=== PATIENT | female | born 1975 | race Two or more races ===

== ENCOUNTER 2018-05-30 14:13 | Observation (INO) | payer BC, OTHER ==
--- NOTE | 2018-05-30 15:32 | ER Document Report ---
ED Medical Screen (RME) - General Chief Complaint: Passed Out Prior to Arrival Stated Complaint: SYNCOPE Time Seen by Provider: 05/30/18 15:22 Notes: The patient is a 43-year-old female, past medical history "tachycardia", presents after multiple episodes of syncope. She was in the bathroom when she began to feel lightheaded, nauseous and then found herself on the ground. She thinks she hit her head because she is having a frontal headache. Patient then had 2 more brief episodes of syncope and EMS was called. She has followed with [place] cardiology and had negative MRIs, echos and blood work for her tachycardia. PE: RRR. NAD. Mild frontal hematoma and tenderness. I have greeted and performed a rapid initial assessment of this patient. A comprehensive ED assessment and evaluation of the patient, analysis of test results and completion of the medical decision making process will be conducted by additional ED providers. TRAVEL OUTSIDE OF THE [place] 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
[2018-05-30 15:48] LABS: ABSOLUTE EOSINOPHILS # (AUTO) 0.1 10^3/uL (0.0-0.6); ABSOLUTE LYMPHOCYTES (AUTO) 2.2 10^3/uL (0.5-4.7); ABSOLUTE MONOCYTES (AUTO) 0.5 10^3/uL (0.1-1.4); ABSOLUTE NEUT (AUTO) 3.2 10^3/uL (1.7-8.2); BASOPHILS % (AUTO) 0.7 % (0-2); EOSINOPHILS % (AUTO) 2.3 % (0-6); HEMATOCRIT 39.4 % (36.0-47.0); HEMOGLOBIN 12.8 g/dL (12.0-15.5); LYMPHOCYTES % (AUTO) 35.5 % (13-45); MEAN CORPUSCULAR HEMOGLOBIN 29.5 pg (27.0-33.4); MEAN CORPUSCULAR HGB CONC 32.5 g/dL (32.0-36.0); MEAN CORPUSCULAR VOLUME 91 fl (80-97); MONOCYTES % (AUTO) 8.1 % (3-13); PLATELET COUNT 245 10^3/uL (150-450); RED BLOOD COUNT 4.34 10^6/uL (3.72-5.28); SEGMENTED NEUTROPHILS % (AUTO) 53.4 % (42-78); TOTAL CELLS COUNTED % (AUTO) 100 %; WHITE BLOOD COUNT 6.1 10^3/uL (4.0-10.5)
[2018-05-30 15:57] LABS: ALANINE AMINOTRANSFERASE 21 U/L (9-52); ALBUMIN 4.2 g/dL (3.5-5.0); ALKALINE PHOSPHATASE 46 U/L (38-126); ANION GAP 11 (5-19); ASPARTATE AMINO TRANSFERASE 21 U/L (14-36); BILIRUBIN,DIRECT 0.2 mg/dL (0.0-0.4); BILIRUBIN,TOTAL 0.4 mg/dL (0.2-1.3); BLOOD UREA NITROGEN 9 mg/dL (7-20); CALCIUM 9.5 mg/dL (8.4-10.2); CARBON DIOXIDE 26 mmol/L (22-30); CHLORIDE 107 mmol/L (98-107); CREATINE KINASE 43 U/L (30-135); GLUCOSE 116 mg/dL (75-110); POTASSIUM 4.6 mmol/L (3.6-5.0); SODIUM 143.5 mmol/L (137-145); TOTAL PROTEIN 6.6 g/dL (6.3-8.2)
--- NOTE | 2018-05-30 16:11 | RADIOLOGY REPORT (SQ) ---
EXAM DESCRIPTION: CT HEAD WITHOUT COMPLETED DATE/TIME: 05/30/2018 4:02 pm REASON FOR STUDY: +LOC, head injury COMPARISON: None. TECHNIQUE: Axial images acquired through the brain without intravenous contrast. Images reviewed wi th bone, brain and subdural windows. Additional sagittal and coronal reconstructions were generated. Images stored on PACS. All CT scanners at this facility use dose modulation, iterative reconstruction, and/or weight based d osing when appropriate to reduce radiation dose to as low as reasonably achievable (ALARA). [facility]: Dose Right [facility]: CareDose [facility]: Dose Right [facility]: Teradose 4D [facility]: Smart LabStyle Innovations RADIATION DOSE: CT Rad equipment meets quality standard of care and radiation dose reduction techniq ues were employed. CTDIvol: 53.2 mGy. DLP: 1044 mGy-cm. mGy. LIMITATIONS: None. FINDINGS: VENTRICLES: Normal size and contour. CEREBRUM: No masses. No hemorrhage. No midline shift. No evidence for acute infarction. Normal gra y/white matter differentiation. No areas of low density in the white matter. CEREBELLUM: No masses. No hemorrhage. No alteration of density. No evidence for acute infarction. EXTRAAXIAL SPACES: No fluid collections. No masses. ORBITS AND GLOBE: No intra- or extraconal masses. Normal contour of globe without masses. CALVARIUM: No fracture. PARANASAL SINUSES: No fluid or mucosal thickening. SOFT TISSUES: No mass or hematoma. OTHER: No other significant finding. IMPRESSION: NORMAL BRAIN CT WITHOUT CONTRAST. EVIDENCE OF ACUTE STROKE: NO. COMMENT: Quality ID # [id number]: Final reports with documentation of one or more dose reduction techniques (e.g., Automated exposure control, adjustment of the mA and/or kV according to patient size, use of iterative reconstruction technique) TECHNICAL DOCUMENTATION: JOB ID: [id number]- All Rights Reserved Reading location - IP/workstation name: [email or web address]--[email or web address]
--- NOTE | 2018-05-30 16:21 | ER Document Report ---
ED General - General Chief Complaint: Passed Out Prior to Arrival Stated Complaint: SYNCOPE Time Seen by Provider: 05/30/18 15:22 Mode of Arrival: Medic Information source: Patient, Parent TRAVEL OUTSIDE OF THE U.S. 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 She states she had some left-sided numbness and tingling on her left but also on her right in the last 3 hours, but states this has happened previously. She started to come to, tried to get up and her came in just another syncopal event that lasted about a minute or so. Vaccinations are up-to-date patient has a history tachycardia, migraine and she has been worked up for her tachycardia with having an echocardiogram and MRI approximately 6 months ago at [facility]. Denies any recent trauma, new medications, food or travel. Denies fevers, chills, hematuria,blurred vision, double vision, loss of vision, speech changes, headaches, wheezing, ST, URI, neck pain , weakness, bowel or bladder dysfunction, saddle anesthesia, muscle paralysis, weakness in bilateral upper or lower extremities equally or rash. Denies IV drug use. - Related Data Allergies/Adverse Reactions: No Known Allergies Allergy (Verified 05/30/18 14:15) Past Medical History - General Information source: Patient, Relative, Emergency Med Personnel - Social History Smoking Status: Never Smoker Chew tobacco use (# tins/day): No Frequency of alcohol use: None Drug Abuse: None Family History: Reviewed & Not Pertinent Patient has suicidal ideation: No Patient has homicidal ideation: No Renal/ Medical History: Denies: Hx Peritoneal Dialysis Past Surgical History: Reports: Hx Gynecologic Surgery - fibroids, ablation 04/21, Hx Neurologic Surgery - fatty tumor from neck, Hx Orthopedic Surgery - left knee Review of Systems - Review of Systems Constitutional: See HPI EENT: No symptoms reported Cardiovascular: See HPI Respiratory: No symptoms reported Gastrointestinal: See HPI Genitourinary: No symptoms reported Female Genitourinary: No symptoms reported Musculoskeletal: No symptoms reported Skin: No symptoms reported Hematologic/Lymphatic: No symptoms reported Neurological/Psychological: See HPI Physical Exam - Vital signs Vitals: Temp Pulse Resp BP Pulse Ox 97.8 F 94 16 143/81 H 100 05/30/18 14:19 05/30/18 14:19 05/30/18 14:19 05/30/18 14:19 05/30/18 14:19 - Notes Notes: PHYSICAL EXAMINATION: GENERAL: Well-appearing, well-nourished and in no acute distress. HEAD: Atraumatic, normocephalic. EYES: Pupils equal round and reactive to light, extraocular movements intact, conjunctiva are normal. ENT: Nares patent, oropharynx clear without exudates. Moist mucous membranes. NECK: Normal range of motion, supple without lymphadenopathy LUNGS: Breath sounds clear to auscultation bilaterally and equal. No wheezes rales or rhonchi. HEART: Tachycardia and rhythm without murmurs ABDOMEN: Soft, epigastric pain, nondistended abdomen. No guarding, no rebound. No masses appreciated. Female : deferred Musculoskeletal: Normal range of motion, no pitting or edema. No cyanosis. NEUROLOGICAL: Cranial nerves grossly intact. Normal speech, normal gait. Normal sensory, motor exams. PERRLA, EOMI. Full motor and sensory function throughout. Supervisor Liquid Yeast + 2 equal bilaterally in BUE. Tongue midline. No pronator drift. No ataxia. Neck with APROM. Raises eyebrows. Strength is 5 out of 5 in bilateral upper and lower extremities equally.Speaks in full sentences. No weakness on one side. Romberg gait steady able to walk straight line. Able to recall 5 objects. PSYCH: Normal mood, normal affect. SKIN: Warm, Dry, normal turgor, no rashes or lesions noted. Course - Re-evaluation Re-evalutation: 05/30/18 18:18 83-year-old female who is afebrile, tachycardic but otherwise vitals stable in no distress presents for evaluation of syncopal event. CMP negative for leukocytosis or anemia, CMP negative for renal or hepatic dysfunction, no electrolyte disturbances. Urinalysis negative. CT head unremarkable. Patient has had workups with [facility] for her tachycardia which she states is not in the last 6 months which she reports was normal but does not have any documentation with her. Patient states her last MRI of her brain was when she was in [place] which was "several years ago" for her migraines. Reevaluation patient states she is becoming nauseous, is having some epigastric pain. Discussed case with Dr. Lyndon Thomas, ER attending, who feels that admission would be reasonable considering her 2 syncopal events which is become worse. Discussed case with Dr. Heraclio Denny, at 1745, hospitalist for admission for syncopal event with tachycardia to rule out PE and questionable patient if she had a TIA due to left -sided, consultation he felt that an MRI of the brain, as well as obtaining CTA of the chest and abdomen due to ruling out PE/epigastric with nausea and vomiting for mesenteric ischemia. Patient has been examined multiple times and consistently does not show any focal neurological deficits, however patient may have experienced a TIA. We will admit to IMICU on medical service for further evaluation of syncopal symptoms, tachycardia, epigastric pain with left-sided numbness - Vital Signs Vital signs: Temp Pulse Resp BP Pulse Ox 97.8 F 94 20 128/87 H 100 05/30/18 14:19 05/30/18 14:19 05/30/18 17:01 05/30/18 17:01 05/30/18 17:01 - Laboratory Result Diagrams: 05/30/18 13:45 05/30/18 13:45 Laboratory results interpreted by me: 05/30/18 13:45 Glucose 116 H Discharge - Discharge Clinical Impression: Syncopal episodes, Tachycardia, Nausea & vomiting, History of left-sided weakness Condition: Stable Disposition: ADMITTED INPATIENT Admitting Provider: Hospitalist - Unit Admitted: IMCU - Dr. Heraclio Denny Referrals: ELLIS HAWTHORNE MD [ASSOCIATE] - Follow up as needed
[2018-05-30] MEDS ORDERED: NORMAL SALINE 1000 ML 1,000 ML IV PRN (16:58)
[2018-05-30] MEDS ORDERED: PROCHLORPERAZINE EDISYLATE INJ 10 MG/2 ML VIAL IV ONE (16:58)
[2018-05-30 17:17] LABS: CREATINE KINASE 44 U/L (30-135)
[2018-05-30 17:18] LABS: PHOSPHORUS 3.5 mg/dL (2.5-4.5)
[2018-05-30 17:31] LABS: CREATINE KINASE MB < 0.22 ng/mL (<4.55); TROPONIN I < 0.012 ng/mL
--- NOTE | 2018-05-30 17:50 | RADIOLOGY REPORT (SQ) ---
EXAM DESCRIPTION: CHEST SINGLE VIEW COMPLETED DATE/TIME: 05/30/2018 5:39 pm REASON FOR STUDY: syncopal event COMPARISON: None. EXAM PARAMETERS: NUMBER OF VIEWS: One view. TECHNIQUE: Single frontal radiographic view of the chest acquired. RADIATION DOSE: NA LIMITATIONS: None. FINDINGS: LUNGS AND PLEURA: No opacities, masses or pneumothorax. No pleural effusion. MEDIASTINUM AND HILAR STRUCTURES: No masses. Contour normal. HEART AND VASCULAR STRUCTURES: Heart normal in size. Normal vasculature. BONES: No acute findings. HARDWARE: None in the chest. OTHER: No other significant finding. IMPRESSION: NO ACUTE RADIOGRAPHIC FINDING IN THE CHEST. TECHNICAL DOCUMENTATION: JOB ID: [id number] [place]-72 2010 [employer]- All Rights Reserved Reading location - IP/workstation name: [email or web address]
[2018-05-30] MEDS ORDERED: ASPIRIN 81 MG TABLET, CHEWABLE PO ONE (17:54)
[2018-05-30 17:58] LABS: APPEARANCE,URINE CLEAR; BILIRUBIN,URINE NEGATIVE (NEGATIVE); COLOR,URINE YELLOW; GLUCOSE, URINE NEGATIVE (NEGATIVE); KETONES,URINE NEGATIVE (NEGATIVE); LEUKOCYTE ESTERASE,URINE NEGATIVE (NEGATIVE); NITRITE,URINE NEGATIVE (NEGATIVE); PROTEIN,URINE NEGATIVE (NEGATIVE); URINE SPECIFIC GRAVITY 1.012; UROBILINOGEN,URINE NEGATIVE mg/dL (<2.0)
[2018-05-30 18:14] LABS: URINE AMPHETAMINES SCREEN NEGATIVE; URINE BARBITURATES SCREEN NEGATIVE; URINE BENZODIAZEPINES SCREEN NEGATIVE; URINE COCAINE SCREEN NEGATIVE; URINE MARIJUANA (THC) SCREEN NEGATIVE; URINE METHADONE SCREEN NEGATIVE; URINE PHENCYCLIDINE SCREEN NEGATIVE
[2018-05-30] MEDS ORDERED: ACETAMINOPHEN 325 MG TABLET PO PRN (18:20)
[2018-05-30] MEDS ORDERED: DIPHENHYDRAMINE HCL 50 MG/ML VIAL IV ONE (18:23)
--- NOTE | 2018-05-30 18:45 | PDOC H&P ---
History of Present Illness Admission Date/PCP: 05/30/2018 ROSALINA PIERRE MD Patient complains of: Syncope History of Present Illness: SEBAS AMARAL is a 43 year old female, with a past medical history of anemia , migraines, vitamin D deficiency, tachycardia and uterine fibroids, who presented to the ED via EMS with her complaining of syncope x2 and the house today. Patients is the main historian. Patient's states that this morning she woke up around 1230 and was washing some dishes when she comes started complaining of feeling hot flashes, dizziness and lightheadedness. Later she went to the bathroom and her heard her yell for him. When he went to the bathroom she was sitting on the commode and stated to her that she had passed out while she was trying to lean forward and then picked herself up. went to help her and while he was helping her she passed out again. states that she was not shaking her arms or legs, did not lose control of her bowel/urine. States she was breathing but was not responsive with her eyes rolled back of the head. He immediately called 911 and waited. He states that she was unconscious for at least 1-2 minutes before she came around. He told me that she was kind of groggy after she came out and was not speaking clearly. Patient still me that she has been feeling dizzy, lightheaded and has tachycardia for a long time now. States she has had worked up by cardiology in the past for tachycardia and has even gone to [place] where she has had echo and MRI of her heart within the last 6 months. She tells me that she has had multiple workups with no outcome. States she has been to neurology many many years ago and was diagnosed with migraine. She tells me that she takes Toprol for her tachycardia. She tells me that she has had the symptoms but today was the worst. She also admits to some nausea, dizziness and numbness/tingling of bilateral hands. She did also tell me at one point that she had unilateral weakness of the left side only. She did tell the ER physician that her weakness was on both sides. Patient herself is not a good historian about her symptoms and was not clear about how exactly her symptoms were affecting her. She does also complain of having a hernia in her belly which stops her from eating and hence she has had a low appetite and early satiety. Past Medical History Hematology: Reports: Anemia Past Surgical History Past Surgical History: Reports: Orthopedic Surgery - left knee Social History Smoking Status: Never Smoker Family History Family History: Reviewed & Not Pertinent Parental Family History Reviewed: Yes Children Family History Reviewed: Unknown Sibling(s) Family History Reviewed.: Unknown Medication/Allergy Allergies/Adverse Reactions: No Known Allergies Allergy (Verified 05/30/18 14:15) Physical Exam Vital Signs: Temp Pulse Resp BP Pulse Ox 97.8 F 94 20 128/87 H 100 05/30/18 14:19 05/30/18 14:19 05/30/18 17:01 05/30/18 17:01 05/30/18 17:01 Intake & Output 05/29/18 05/30/18 05/31/18 06:59 06:59 06:59 Weight 165 lb 5.547 oz General appearance: PRESENT: no acute distress Head exam: PRESENT: atraumatic, normocephalic Eye exam: PRESENT: EOMI. ABSENT: conjunctival injection, scleral icterus Ear exam: PRESENT: normal external ear exam Mouth exam: PRESENT: moist, neck supple Neck exam: PRESENT: full ROM. ABSENT: JVD, tenderness, tracheal deviation Respiratory exam: PRESENT: clear to auscultation hugh, symmetrical Cardiovascular exam: PRESENT: +S1, +S2, tachycardia GI/Abdominal exam: PRESENT: normal bowel sounds, soft. ABSENT: tenderness Rectal exam: PRESENT: deferred Extremities exam: ABSENT: +2 edema Musculoskeletal exam: PRESENT: full ROM, tenderness Neurological exam: PRESENT: alert, awake, oriented to person, oriented to place , oriented to time, oriented to situation, reflexes normal, other - CN intact- did not walk her, finger to nose normal Skin exam: PRESENT: dry, warm Results Laboratory Results: 05/30/18 13:45 05/30/18 13:45 05/30/18 05/30/18 05/30/18 13:45 13:45 13:45 WBC 6.1 RBC 4.34 Hgb 12.8 Hct 39.4 MCV 91 MCH 29.5 MCHC 32.5 RDW 13.0 Plt Count 245 Seg Neutrophils % 53.4 Lymphocytes % 35.5 Monocytes % 8.1 Eosinophils % 2.3 Basophils % 0.7 Absolute Neutrophils 3.2 Absolute Lymphocytes 2.2 Absolute Monocytes 0.5 Absolute Eosinophils 0.1 Absolute Basophils 0.0 Sodium 143.5 Potassium 4.6 Chloride 107 Carbon Dioxide 26 Anion Gap 11 BUN 9 Creatinine 0.73 Est GFR ( Amer) > 60 Est GFR (Non-Af Amer) > 60 Glucose 116 H Calcium 9.5 Phosphorus Magnesium Total Bilirubin 0.4 AST 21 ALT 21 Alkaline Phosphatase 46 Total Protein 6.6 Albumin 4.2 TSH Serum HCG, Qual NEGATIVE Urine Color Urine Appearance Urine pH Ur Specific [place] Urine Protein Urine Glucose (UA) Urine Ketones Urine Blood Urine Nitrite Ur Leukocyte Esterase Urine WBC (Auto) Urine RBC (Auto) 05/30/18 05/30/18 05/30/18 13:45 13:45 17:34 WBC RBC Hgb Hct MCV MCH MCHC RDW Plt Count Seg Neutrophils % Lymphocytes % Monocytes % Eosinophils % Basophils % Absolute Neutrophils Absolute Lymphocytes Absolute Monocytes Absolute Eosinophils Absolute Basophils Sodium Potassium Chloride Carbon Dioxide Anion Gap BUN Creatinine Est GFR ( Amer) Est GFR (Non-Af Amer) Glucose Calcium Phosphorus 3.5 Magnesium 1.6 Total Bilirubin AST ALT Alkaline Phosphatase Total Protein Albumin TSH 1.34 Serum HCG, Qual Urine Color YELLOW Urine Appearance CLEAR Urine pH 6.0 Ur Specific [place] 1.012 Urine Protein NEGATIVE Urine Glucose (UA) NEGATIVE Urine Ketones NEGATIVE Urine Blood NEGATIVE Urine Nitrite NEGATIVE Ur Leukocyte Esterase NEGATIVE Urine WBC (Auto) 1 Urine RBC (Auto) 1 05/30/18 05/30/18 05/30/18 13:45 13:45 13:45 Creatine Kinase 43 44 CK-MB (CK-2) < 0.22 Troponin I < 0.012 NT-Pro-B Natriuret Pep 05/30/18 13:45 Creatine Kinase CK-MB (CK-2) Troponin I NT-Pro-B Natriuret Pep 63 Impressions: Head CT 05/30/18 15:29 IMPRESSION: NORMAL BRAIN CT WITHOUT CONTRAST. EVIDENCE OF ACUTE STROKE: NO. Chest X-Ray 05/30/18 17:26 IMPRESSION: NO ACUTE RADIOGRAPHIC FINDING IN THE CHEST. Assessment & Plan - Time Time Spent: 50 to 70 Minutes Anticipated discharge: Home - Plan Summary Plan Summary: 43-year-old female with past medical history of anemia, migraine, vitamin D deficiency, tachycardia and uterine fibroid who presented to the ED after 2 syncopal episode 1 of which was witnessed by her . At this time I am unsure whether her syncope is cardiac, pulmonary, neurology, vasovagal and/or psychogenic in nature. She had a head CT in the ED which did not show anything. I spoke with the ER physician and she will order MRI brain. I also talked to the ED physician about getting a CTA head and neck to rule out any stenosis. We have also discussed by CTA chest to rule out a PE. Given her abdominal pain and early satiety and CT abdomen will also be beneficial. Since she cannot get CTA of head and neck and of the chest same time we have decided to get only CTA of the chest and abdomen at this time. I will consider getting ultrasound of the carotids to rule out any stenosis. There is a question whether she is having any seizures or is there is some type of atypical migraine at this point. We will place her in observation in IMCU- neurochecks every 4 hours-threat monitoring analyst-give her some IV fluids and monitor her overnight. Her TSH was normal. We will get an A1c and lipid panel.
--- NOTE | 2018-05-30 18:47 | EKG REPORT ---
SEVERITY:- NORMAL ECG - SINUS RHYTHM : Confirmed by: Jeronimo Whitman MD 30-May-2018 18:46:34
--- NOTE | 2018-05-30 19:11 | RADIOLOGY REPORT (SQ) ---
EXAM DESCRIPTION: CTA CHEST; CTA ABDOMEN/PELVIS W WO COMPLETED DATE/TIME: 05/30/2018 6:57 pm REASON FOR STUDY: syncopal event; abd pain with n/v/d, sudden onset CONTRAST TYPE AND DOSE: contrast/concentration: Isovue 370.00 mg/ml; Total Contrast Delivered: 100.0 ml; Total Saline Delivered: 100.0 ml 100 mL Omnipaque 350- low osmolar. RENAL FUNCTION: GFR > 60. COMPARISON: None. TECHNIQUE: CT scan of the chest performed using helical scanning technique with dynamic intravenous contrast injection. Images reviewed with lung, soft tissue and bone windows. Reconstructed coronal a nd sagittal MPR images reviewed. All images stored on PACS. All CT scanners at this facility use dose modulation, iterative reconstruction, and/or weight based d osing when appropriate to reduce radiation dose to as low as reasonably achievable (ALARA). [facility]: Dose Right [facility]: CareDose [facility]: Dose Right [facility]: Teradose 4D [facility]: Telormedix RADIATION DOSE: . LIMITATIONS: None. FINDINGS: AXILLAE: No adenopathy. CHEST WALL: No masses. No subcutaneous air. LUNGS: No nodules or masses. No pneumothorax. No infiltrates. PLEURA: No effusions. No calcifications. THYROID: No masses or significant asymmetry. HILAR AND MEDIASTINAL STRUCTURES: No identified masses or abnormal nodes. AORTA AND GREAT VESSELS: No aneurysm. No dissection. PULMONARY ARTERIES: No identified pulmonary emboli. Study not optimized for the pulmonary arteries. HEART: No pericardial effusion. HARDWARE AND LIFELINES: None. BONES: No significant finding. OTHER: No other significant finding. IMPRESSION: No acute findings. COMPARISON: None. RADIATION DOSE: CT Rad equipment meets quality standard of care and radiation dose reduction techniq ues were employed. CTDIvol: 9.9 - 14.2 mGy. DLP: 1404 mGy-cm.mGy. TECHNIQUE: CT scan of the abdomen and pelvis performed with intravenous and oral contrast using martha kerri scanning technique with dynamic intravenous contrast injection. Images reviewed with lung, soft tissue and bone windows. Reconstructed coronal and sagittal MPR images reviewed. Delayed images for evaluation of the urinary system also acquired and evaluated. All images stored on PACS. All CT scanners at this facility use dose modulation, iterative reconstruction, and/or weight based d osing when appropriate to reduce radiation dose to as low as reasonably achievable (ALARA). [facility]: Dose Right [facility]: SureCare [facility]: Dose Right [facility]: Teradose 4D [facility]: Telormedix FINDINGS: LIVER: Normal size. No masses. No dilated ducts. SPLEEN: Normal size. No focal lesions. PANCREAS: No masses. No significant calcifications. No adjacent inflammation or peripancreatic flui d collections. Pancreatic duct not dilated. GALLBLADDER: No identified stones by CT criteria. No inflammatory changes to suggest cholecystitis. ADRENAL GLANDS: No significant masses or asymmetry. RIGHT KIDNEY AND URETER: No solid masses. No significant calcification. No hydronephrosis or hydroure ter. LEFT KIDNEY AND URETER: No solid masses. No significant calcification. No hydronephrosis or hydrouret er. AORTA AND VESSELS: No aneurysm. No dissection. Renal arteries, SMA, celiac without stenosis. RETROPERITONEUM: No retroperitoneal adenopathy, hemorrhage or masses. LARGE AND SMALL BOWEL: No dilatation. No masses. No wall thickening. APPENDIX: Normal. ABDOMINAL WALL: No hernia or masses. PERITONEAL CAVITY: No free air. No free fluid. No peritoneal implants or masses. PELVIS: No free fluid. Fibroid uterus. Normal bladder. BONES: No acute findings. OTHER: No other significant finding. IMPRESSION: No acute inflammatory changes. Fibroid uterus. TECHNICAL DOCUMENTATION: JOB ID: [id number] [place]-72 Quality ID # [id number]: Final reports with documentation of one or more dose reduction techniques (e.g., Au tomated exposure control, adjustment of the mA and/or kV according to patient size, use of iterative reconstruction technique) 2010 [employer]- All Rights Reserved Reading location - IP/workstation name: [email or web address]
--- NOTE | 2018-05-30 19:11 | RADIOLOGY REPORT (SQ) ---
EXAM DESCRIPTION: CTA CHEST; CTA ABDOMEN/PELVIS W WO COMPLETED DATE/TIME: 05/30/2018 6:57 pm REASON FOR STUDY: syncopal event; abd pain with n/v/d, sudden onset CONTRAST TYPE AND DOSE: contrast/concentration: Isovue 370.00 mg/ml; Total Contrast Delivered: 100.0 ml; Total Saline Delivered: 100.0 ml 100 mL Omnipaque 350- low osmolar. RENAL FUNCTION: GFR > 60. COMPARISON: None. TECHNIQUE: CT scan of the chest performed using helical scanning technique with dynamic intravenous contrast injection. Images reviewed with lung, soft tissue and bone windows. Reconstructed coronal a nd sagittal MPR images reviewed. All images stored on PACS. All CT scanners at this facility use dose modulation, iterative reconstruction, and/or weight based d osing when appropriate to reduce radiation dose to as low as reasonably achievable (ALARA). [facility]: Dose Right [facility]: CareDose [facility]: Dose Right [facility]: Teradose 4D [facility]: BuyPlayWin RADIATION DOSE: . LIMITATIONS: None. FINDINGS: AXILLAE: No adenopathy. CHEST WALL: No masses. No subcutaneous air. LUNGS: No nodules or masses. No pneumothorax. No infiltrates. PLEURA: No effusions. No calcifications. THYROID: No masses or significant asymmetry. HILAR AND MEDIASTINAL STRUCTURES: No identified masses or abnormal nodes. AORTA AND GREAT VESSELS: No aneurysm. No dissection. PULMONARY ARTERIES: No identified pulmonary emboli. Study not optimized for the pulmonary arteries. HEART: No pericardial effusion. HARDWARE AND LIFELINES: None. BONES: No significant finding. OTHER: No other significant finding. IMPRESSION: No acute findings. COMPARISON: None. RADIATION DOSE: CT Rad equipment meets quality standard of care and radiation dose reduction techniq ues were employed. CTDIvol: 9.9 - 14.2 mGy. DLP: 1404 mGy-cm.mGy. TECHNIQUE: CT scan of the abdomen and pelvis performed with intravenous and oral contrast using martha kerri scanning technique with dynamic intravenous contrast injection. Images reviewed with lung, soft tissue and bone windows. Reconstructed coronal and sagittal MPR images reviewed. Delayed images for evaluation of the urinary system also acquired and evaluated. All images stored on PACS. All CT scanners at this facility use dose modulation, iterative reconstruction, and/or weight based d osing when appropriate to reduce radiation dose to as low as reasonably achievable (ALARA). [facility]: Dose Right [facility]: SureCare [facility]: Dose Right [facility]: Teradose 4D [facility]: BuyPlayWin FINDINGS: LIVER: Normal size. No masses. No dilated ducts. SPLEEN: Normal size. No focal lesions. PANCREAS: No masses. No significant calcifications. No adjacent inflammation or peripancreatic flui d collections. Pancreatic duct not dilated. GALLBLADDER: No identified stones by CT criteria. No inflammatory changes to suggest cholecystitis. ADRENAL GLANDS: No significant masses or asymmetry. RIGHT KIDNEY AND URETER: No solid masses. No significant calcification. No hydronephrosis or hydroure ter. LEFT KIDNEY AND URETER: No solid masses. No significant calcification. No hydronephrosis or hydrouret er. AORTA AND VESSELS: No aneurysm. No dissection. Renal arteries, SMA, celiac without stenosis. RETROPERITONEUM: No retroperitoneal adenopathy, hemorrhage or masses. LARGE AND SMALL BOWEL: No dilatation. No masses. No wall thickening. APPENDIX: Normal. ABDOMINAL WALL: No hernia or masses. PERITONEAL CAVITY: No free air. No free fluid. No peritoneal implants or masses. PELVIS: No free fluid. Fibroid uterus. Normal bladder. BONES: No acute findings. OTHER: No other significant finding. IMPRESSION: No acute inflammatory changes. Fibroid uterus. TECHNICAL DOCUMENTATION: JOB ID: [id number] [place]-72 Quality ID # [id number]: Final reports with documentation of one or more dose reduction techniques (e.g., Au tomated exposure control, adjustment of the mA and/or kV according to patient size, use of iterative reconstruction technique) 2010 [employer] All Rights Reserved Reading location - IP/workstation name: [email or web address]
[2018-05-30] MEDS: NORMAL SALINE 1000 ML 1,000 ML IV PRN (19:57)
--- NOTE | 2018-05-30 20:33 | RADIOLOGY REPORT (SQ) ---
EXAM DESCRIPTION: MRI HEAD WITHOUT COMPLETED DATE/TIME: 05/30/2018 8:02 pm REASON FOR STUDY: r.o stroke COMPARISON: None. TECHNIQUE: Multiplanar imaging includes non-contrasted T1, T2, FLAIR, and diffusion with ADC map seq uences. Images stored on PACS. LIMITATIONS: None. FINDINGS: ANATOMY: No anomalies. Normal vascular flow voids. Pituitary fossa normal. CSF SPACES: Normal in size and contour. No hemorrhage. CEREBRUM: Sulci and gyri normal in size and contour. Normal white matter signal on FLAIR imaging. No evidence of hemorrhage, mass, or extraaxial fluid collection. POSTERIOR FOSSA: No signal alteration. No hemorrhage. No edema, masses or mass effect. Internal quincy tory canals, cerebello-pontine angles, mastoids normal. DIFFUSION IMAGING: Negative for acute or sub-acute infarction. ORBITS: No masses. Globes normal. PARANASAL SINUSES: No fluid levels. Mucosa normal. OTHER: No other significant finding. IMPRESSION: Negative for acute or sub-acute infarction. Age-appropriate exam. EVIDENCE OF ACUTE STROKE: NO. TECHNICAL DOCUMENTATION: JOB ID: [id number] [place]-72 2010 [employer]- All Rights Reserved Reading location - IP/workstation name: [email or web address]
[2018-05-31] MEDS: NORMAL SALINE 1000 ML 1,000 ML IV PRN (05:11)
[2018-05-31 06:48] LABS: APPEARANCE,URINE CLEAR; BILIRUBIN,URINE NEGATIVE (NEGATIVE); COLOR,URINE STRAW; GLUCOSE, URINE NEGATIVE (NEGATIVE); KETONES,URINE NEGATIVE (NEGATIVE); LEUKOCYTE ESTERASE,URINE NEGATIVE (NEGATIVE); NITRITE,URINE NEGATIVE (NEGATIVE); PROTEIN,URINE NEGATIVE (NEGATIVE); URINE SPECIFIC GRAVITY 1.008; UROBILINOGEN,URINE NEGATIVE mg/dL (<2.0)
[2018-05-31 07:25] LABS: ABSOLUTE EOSINOPHILS # (AUTO) 0.1 10^3/uL (0.0-0.6); ABSOLUTE LYMPHOCYTES (AUTO) 1.5 10^3/uL (0.5-4.7); ABSOLUTE MONOCYTES (AUTO) 0.5 10^3/uL (0.1-1.4); ABSOLUTE NEUT (AUTO) 5.4 10^3/uL (1.7-8.2); BASOPHILS % (AUTO) 0.4 % (0-2); EOSINOPHILS % (AUTO) 1.1 % (0-6); HEMATOCRIT 32.5 % (36.0-47.0); HEMOGLOBIN 11.1 g/dL (12.0-15.5); LYMPHOCYTES % (AUTO) 19.9 % (13-45); MEAN CORPUSCULAR HEMOGLOBIN 30.6 pg (27.0-33.4); MEAN CORPUSCULAR HGB CONC 34.1 g/dL (32.0-36.0); MEAN CORPUSCULAR VOLUME 90 fl (80-97); MONOCYTES % (AUTO) 6.9 % (3-13); PLATELET COUNT 192 10^3/uL (150-450); RED BLOOD COUNT 3.61 10^6/uL (3.72-5.28); RED CELL DISTRIBUTION WIDTH 12.8 % (11.5-14.0); SEGMENTED NEUTROPHILS % (AUTO) 71.7 % (42-78); TOTAL CELLS COUNTED % (AUTO) 100 %; WHITE BLOOD COUNT 7.5 10^3/uL (4.0-10.5)
--- NOTE | 2018-05-31 09:16 | EKG REPORT ---
SEVERITY:- NORMAL ECG - SINUS RHYTHM : Confirmed by: Amairani Mcmillan MD 31-May-2018 09:15:22
[2018-05-31 09:19] LABS: ALANINE AMINOTRANSFERASE 19 U/L (9-52); ALKALINE PHOSPHATASE 38 U/L (38-126); ANION GAP 7 (5-19); ASPARTATE AMINO TRANSFERASE 16 U/L (14-36); BLOOD UREA NITROGEN 5 mg/dL (7-20); CALCIUM 8.3 mg/dL (8.4-10.2); CARBON DIOXIDE 27 mmol/L (22-30); CHLORIDE 110 mmol/L (98-107); CHOLESTEROL 156.88 mg/dL (0-200); CREATINE KINASE 47 U/L (30-135); GLUCOSE 82 mg/dL (75-110); TOTAL PROTEIN 5.2 g/dL (6.3-8.2); TRIGLYCERIDES 76 mg/dL (<150)
[2018-05-31 09:30] LABS: DIRECT LDL 108 mg/dL (<100)
[2018-05-31 09:31] LABS: BILIRUBIN,DIRECT 0.4 mg/dL (0.0-0.4); BILIRUBIN,TOTAL 0.4 mg/dL (0.2-1.3)
[2018-05-31 09:36] LABS: POTASSIUM 3.6 mmol/L (3.6-5.0)
[2018-05-31] MEDS ORDERED: ENOXAPARIN SODIUM INJ 40 MG/0.4 ML DISP.SYRIN SUBCUT SCH (10:00)
[2018-05-31] MEDS ORDERED: DOCUSATE SODIUM 100 MG CAPSULE PO SCH (10:00)
[2018-05-31] MEDS ORDERED: METOPROLOL SUCCINATE 50 MG TAB.SR.24H PO ONE (13:30)
--- NOTE | 2018-05-31 15:00 | PDOC DISCHARGE SUMMARY ---
General - Admit/Disc Date/PCP Admission Date/Primary Care Provider: 05/30/18 18:56 ROSALINA PIERRE MD Discharge Date: 05/31/18 - Seen on rounds this afternoon - Additional Information Resuscitation Status: Full Code Home Medications: Celecoxib 200 mg PO DAILY 05/30/18 Cetirizine HCl [Zyrtec 10 mg Tablet] 10 mg PO DAILY 05/30/18 Cyclobenzaprine HCl [Amrix 15 mg Capsule Sustained Release] 15 mg PO QHS Fluticasone Propionate [Flonase Nasal [place] 50 Mcg/[place] 16 gm] 2 spray NASL Q12 05/30/18 Metoprolol Succinate [Toprol Xl] 50 mg PO DAILY 05/30/18 Zolpidem Tartrate [Ambien] 10 mg PO QHS 05/30/18 Ascorbic Acid [Vitamin C 500 mg Tablet] 1,000 mg PO DAILY 05/31/18 Cholecalciferol (Vitamin D3) [Vitamin D3 1000 Unit Tablet] 2,000 unit PO DAILY 05/31/18 Gabapentin [Gralise] 1,800 mg PO QHS 05/31/18 Rizatriptan Benzoate [Maxalt Nut Roaster Helper] 10 mg PO DAILYP PRN 05/31/18 History of Present Illness Patient complains of: syncope History of Present Illness: SEBAS AMARAL is a 43 year old female, with a past medical history of anemia , migraines, vitamin D deficiency, tachycardia and uterine fibroids, who presented to the ED via EMS with her complaining of syncope x2 and the house today. Patients is the main historian. Patient's states that this morning she woke up around 1230 and was washing some dishes when she comes started complaining of feeling hot flashes, dizziness and lightheadedness. Later she went to the bathroom and her heard her yell for him. When he went to the bathroom she was sitting on the commode and stated to her that she had passed out while she was trying to lean forward and then picked herself up. went to help her and while he was helping her she passed out again. states that she was not shaking her arms or legs, did not lose control of her bowel/urine. States she was breathing but was not responsive with her eyes rolled back of the head. He immediately called 911 and waited. He states that she was unconscious for at least 1-2 minutes before she came around. He told me that she was kind of groggy after she came out and was not speaking clearly. Patient still me that she has been feeling dizzy, lightheaded and has tachycardia for a long time now. States she has had worked up by cardiology in the past for tachycardia and has even gone to [place] where she has had echo and MRI of her heart within the last 6 months. She tells me that she has had multiple workups with no outcome. States she has been to neurology many many years ago and was diagnosed with migraine. She tells me that she takes Toprol for her tachycardia. She tells me that she has had the symptoms but today was the worst. She also admits to some nausea, dizziness and numbness/tingling of bilateral hands. She did also tell me at one point that she had unilateral weakness of the left side only. She did tell the ER physician that her weakness was on both sides. Patient herself is not a good historian about her symptoms and was not clear about how exactly her symptoms were affecting her. She does also complain of having a hernia in her belly which stops her from eating and hence she has had a low appetite and early satiety. Hospital Course Hospital Course: This is a 43-year-old female past medical history of anemia, migraines, vitamin D deficiency and tachycardia who was admitted to the hospital yesterday for syncope 2. After admission to the hospital she did receive a CT of the head and MRI of brain and she did not show anything. She did complain of some numbness/ tingling several arms and legs and at some point it was unilateral. There was a concern for ischemia but was ruled out with MRI brain. Due to her syncope we had also checked a CTA chest and also of the abdomen for nausea-fortunately there were no acute findings and no signs of PE. She was also found to be very tachycardic but she tells me that that is the norm for her. She tells me that her tachycardia normally runs between 101 140 at home. She tells me that she had extensive workup done at [facility]/[place] and that found nothing-tells me that this was all done within the last 6 months. Next day the blood work did not show any acute changes except for slight anemia. Her lipid panel was slightly elevated. Her EKG showed sinus rhythm. And her troponin remained negative. Physical Exam Vital Signs: Temp Pulse Resp BP Pulse Ox 98.9 F 84 18 122/68 100 05/31/18 11:41 05/31/18 12:00 05/31/18 12:00 05/31/18 12:00 05/31/18 12:00 Intake & Output 05/30/18 05/31/18 06/01/18 06:59 06:59 06:59 Intake Total 240 Balance 240 Weight 162 lb 4.163 oz General appearance: PRESENT: no acute distress, well-developed, well-nourished. ABSENT: obese Head exam: PRESENT: atraumatic, normocephalic Eye exam: PRESENT: EOMI. ABSENT: conjunctival injection, scleral icterus Ear exam: PRESENT: normal external ear exam Mouth exam: PRESENT: moist, neck supple Neck exam: PRESENT: full ROM. ABSENT: JVD, tenderness Respiratory exam: PRESENT: clear to auscultation hugh, symmetrical Cardiovascular exam: PRESENT: +S1, +S2, other - Tachycardic GI/Abdominal exam: PRESENT: normal bowel sounds, soft. ABSENT: tenderness Extremities exam: ABSENT: joint swelling, pedal edema Musculoskeletal exam: PRESENT: full ROM. ABSENT: tenderness Neurological exam: PRESENT: alert, awake, oriented to person, oriented to place , oriented to time, CN II-XII grossly intact Skin exam: PRESENT: dry, warm Results Laboratory Results: 05/31/18 07:03 05/31/18 07:03 05/31/18 05/31/18 05/31/18 06:30 07:03 07:03 WBC 7.5 RBC 3.61 L Hgb 11.1 L Hct 32.5 L MCV 90 MCH 30.6 MCHC 34.1 RDW 12.8 Plt Count 192 Seg Neutrophils % 71.7 Lymphocytes % 19.9 Monocytes % 6.9 Eosinophils % 1.1 Basophils % 0.4 Absolute Neutrophils 5.4 Absolute Lymphocytes 1.5 Absolute Monocytes 0.5 Absolute Eosinophils 0.1 Absolute Basophils 0.0 Sodium 144.0 Potassium 3.6 D Chloride 110 H Carbon Dioxide 27 Anion Gap 7 BUN 5 L Creatinine 0.59 Est GFR ( Amer) > 60 Est GFR (Non-Af Amer) > 60 Glucose 82 Calcium 8.3 L Magnesium 1.7 Total Bilirubin 0.4 AST 16 ALT 19 Alkaline Phosphatase 38 Ammonia Total Protein 5.2 L Albumin 3.0 L Triglycerides 76 Cholesterol 156.88 LDL Cholesterol Direct 108 H VLDL Cholesterol 15.0 HDL Cholesterol 37 L Urine Color STRAW Urine Appearance CLEAR Urine pH 5.0 Ur Specific [employer] 1.008 Urine Protein NEGATIVE Urine Glucose (UA) NEGATIVE Urine Ketones NEGATIVE Urine Blood NEGATIVE Urine Nitrite NEGATIVE Ur Leukocyte Esterase NEGATIVE Urine WBC (Auto) 1 Urine RBC (Auto) 0 05/31/18 07:03 WBC RBC Hgb Hct MCV MCH MCHC RDW Plt Count Seg Neutrophils % Lymphocytes % Monocytes % Eosinophils % Basophils % Absolute Neutrophils Absolute Lymphocytes Absolute Monocytes Absolute Eosinophils Absolute Basophils Sodium Potassium Chloride Carbon Dioxide Anion Gap BUN Creatinine Est GFR ( Amer) Est GFR (Non-Af Amer) Glucose Calcium Magnesium Total Bilirubin AST ALT Alkaline Phosphatase Ammonia < 8.7 L Total Protein Albumin Triglycerides Cholesterol LDL Cholesterol Direct VLDL Cholesterol HDL Cholesterol Urine Color Urine Appearance Urine pH Ur Specific [employer] Urine Protein Urine Glucose (UA) Urine Ketones Urine Blood Urine Nitrite Ur Leukocyte Esterase Urine WBC (Auto) Urine RBC (Auto) 05/30/18 05/31/18 05/31/18 19:35 01:24 07:03 Creatine Kinase Troponin I < 0.012 < 0.012 < 0.012 05/31/18 05/31/18 07:03 13:14 Creatine Kinase 47 Troponin I < 0.012 Impressions: Head CT 05/30/18 15:29 IMPRESSION: NORMAL BRAIN CT WITHOUT CONTRAST. EVIDENCE OF ACUTE STROKE: NO. Chest X-Ray 05/30/18 17:26 IMPRESSION: NO ACUTE RADIOGRAPHIC FINDING IN THE CHEST. Chest/Abdomen CTA 05/30/18 17:26 IMPRESSION: No acute findings. IMPRESSION: No acute inflammatory changes. Fibroid uterus. Head MRI 05/30/18 17:51 IMPRESSION: Negative for acute or sub-acute infarction. Age-appropriate exam. EVIDENCE OF ACUTE STROKE: NO. Abdomen/Pelvis CTA 05/30/18 18:08 IMPRESSION: No acute findings. IMPRESSION: No acute inflammatory changes. Fibroid uterus. Qualifiers - * PATIENT BEING DISCHARGED WITH ANY OF THE FOLLOWING DIAGNOSIS: No Plan Discharge Plan: I had a long conversation with patient today regarding her symptoms and workup in the hospital. Unfortunately all her workup remained negative and we still are not sure about the cause of her syncopal episode as described by family. I told her that she should follow-up with a neurologist at this may be some type of atypical migraine. 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 Time Spent: Less than 30 Minutes
[2018-05-31 15:59] VITALS: BP 115/84
[2018-06-01] MEDS ORDERED: METOPROLOL SUCCINATE 50 MG TAB.SR.24H PO SCH (10:00)
== END 2018-05-31 16:29 | disposition home or self-care (01) ==
LOC: ER 14:13 → EH 18:56 → 3S 20:17
PROVIDERS: ADMIT Family Medicine; ATTEND Family Medicine
DX: R55 Syncope and collapse (principal); R00.0 Tachycardia, unspecified; R68.81 Early satiety; R63.0 Anorexia; R20.0 Anesthesia of skin; R20.2 Paresthesia of skin; R42 Dizziness and giddiness; D25.9 Leiomyoma of uterus, unspecified; R11.2 Nausea with vomiting, unspecified; R10.13 Epigastric pain; Z68.26 Body mass index [BMI] 26.0-26.9, adult; Z79.899 Other long term (current) drug therapy; Z98.890 Other specified postprocedural states
CPT/HCPCS: 93005 ×2; 99285; 96361; 96374; 96375; 36415 ×2; 82553; 82140; 82550 ×2; 83735 ×2; 84100; 84443; 84703; 85025 ×2; 80053 ×2; 81001 ×2; 84484 ×2; 80307; 83036; 80061; 83880; 70551; 71045; 70450; 71275; 74174; 93010 ×2; G0378 ×3; J1200; J1650; J0780; J7030 ×2